=== PATIENT | female | born 1990 | race Caucasian/White ===

== ENCOUNTER 2021-03-21 20:30 | Emergency (ER) | payer BC ==
[~2021-03-21] VITALS: Ht 170.2 cm; Wt 68.2 kg
--- NOTE | 2021-03-21 20:45 | PHYS DOC ---
Past History Past Medical History: UTI General Adult EDM: Chief Complaint: FLANK PAIN HPI: HPI: ".. I ve seen a urologist and have a follow up apt.... thinks I may be having kidney stone pain... I have had UTI in past... my primary put me on bactrim... but it never works for me... I did not fill the script yet... but will if you tell me too..I came in because I am having increase pain and blood in my urine... " " I ve had kidney stone once before... " Patient is a 31 year old female who presents with above hx and complaints of flank renal colic and hematuria.. Patient has history of previous urinary tract infections. No history of STDs. Has had 4 lifetime sexual partners. No vaginal discharge. Has had 1 previous episode of renal stones in 2016. There is family history of kidney stones with grandfather. Patient denies any fever or chills. Patient denies any history of immunosuppression. Patient denies any recent travel. Patient denies any trauma. There is some question as to whether patient has been maintaining good hydration. Patient follows with urology Dr. Batista and her primary is Dr. Garnica. Patient has previous abdomen surgeries of hysterectomy. No history of coagulopathy. Review of Systems: Review of Systems: Constitutional: Denies fever or chills Eyes: Denies change in visual acuity HENT: Denies nasal congestion or sore throat Respiratory: Denies cough or shortness of breath Cardiovascular: Denies chest pain or edema GI: Complains of abdominal pain, nausea. Denies vomiting, bloody stools or diarrhea : Complains of dysuria Musculoskeletal: Denies back pain or joint pain Integument: Denies rash Neurologic: Denies headache, focal weakness or sensory changes Endocrine: Denies polyuria or polydipsia Lymphatic: Denies swollen glands Psychiatric: Denies depression or anxiety Family History: Family History: Grandfather history of kidney stones Current Medications: Current Meds: See nursing for home meds Allergies: Allergies: No known drug allergies Physical Exam: PE: Constitutional: In acute distress, non-toxic appearance. [] HENT: Normocephalic, atraumatic, bilateral external ears normal, oropharynx moist, no oral exudates, nose normal. [] Eyes: PERRLA, EOMI, conjunctiva normal, no discharge. [] Neck: Normal range of motion, no tenderness, supple, no stridor. [] Cardiovascular:Heart rate regular rhythm, no murmur [] Lungs & Thorax: Bilateral breath sounds equal apex with scattered wheezes on auscultation [] Abdomen: Bowel sounds decreased, soft, mild lower abdomen tenderness, no masses, no pulsatile masses. Bilateral flank pain on percussion. Old surgery scars. Skin: Warm, dry, no erythema, no rash. [] Back: No tenderness, no CVA tenderness. [] Extremities: No tenderness, no cyanosis, no clubbing, ROM intact, no edema. No psoas sign. No cording. Neurologic: Alert and oriented X 3, normal motor function, normal sensory function, no focal deficits noted. [] Psychologic: Affect anxious, judgement normal, mood normal. [] EKG: EKG: [] Radiology/Procedures: Radiology/Procedures: [[address] [address] IMAGING REPORT Signed PATIENT: BOBBY SEO JACCOUNT: [id number] : 1990 LOCATION: ER AGE: 31 SEX: F EXAM STATUS: REG ER ORD. PHYSICIAN: OVIDIO WHYTE MD REASON: PAIN PROCEDURE: CT ABDOMEN PELVIS WO CONTRAST Exam: CT of abdomen and pelvis without contrast INDICATION: Pain TECHNIQUE: Sequential axial images through the abdomen and pelvis obtained without IV contrast. Sagittal and coronal reformatted images were reconstructed from the axial data and reviewed. Exposure: One or more of the following in the visualized dose reduction techniques were utilized for this examination: 1. Automated exposure control 2. Adjustment of the MA and/or KV according to patient size 3. Use of iterative of reconstructive technique Comparisons: None FINDINGS: Heart size is normal. No pericardial effusion. Visualized lung bases are clear. No pleural effusion. Evaluation of solid organs is limited secondary to noncontrast technique. Liver, spleen, pancreas, gallbladder and adrenals are unremarkable. No perinephric inflammation or hydronephrosis. Cystic lesion at the upper pole of the right kidney with layering hyperdense debris. No renal or ureteral calculi are identified. Bladder is partially distended with diffuse wall thickening. Mild perivesicular fat stranding is also noted. Uterus is absent. No abnormal adnexal mass. Large and small bowel are unremarkable. Appendix is normal. No free intra- abdominal air or fluid. No obstruction. Abdominal aorta has a normal course and caliber. No enlarged intra-abdominal lymph nodes are identified. 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 No suspicious osseous lesions or acute fractures. IMPRESSION: Diffuse perivesicular fat stranding. Correlate with urinalysis for cystitis. Electronically signed by: Jeremy Gross MD (03/21/2021 10:03 PM) [facility] DICTATED AND SIGNED BY: JEREMY GROSS MD DATE: 03/21/212157 CC: OVIDIO WHYTE MD; MANUELITO GARNICA ~[facility]0 0 ][place] [address] IMAGING REPORT Signed PATIENT: BOBBY SEO JACCOUNT: [id number] : 1990 LOCATION: ER AGE: 31 SEX: F EXAM STATUS: REG ER ORD. PHYSICIAN: OVIDIO WHYTE MD REASON: ABDOMEN PAIN PROCEDURE: ACUTE ABDOMEN SERIES Exam: Acute abdominal series INDICATION: Abdominal pain TECHNIQUE: Frontal view of the chest with upright and supine views of the ab domen Comparisons: CT same day FINDINGS: The cardiomediastinal silhouette and pulmonary vessels are within normal limits. The lung and pleural spaces are clear. Air and stool are noted throughout the colon to level the rectum in a nonobstructive bowel gas pattern. No suspicious masses or calcifications. Visualized osseous structures are unremarkable. IMPRESSION: 1. No acute cardiopulmonary process. 2. Nonobstructive bowel gas pattern. Electronically signed by: Jeremy Gross MD (03/21/2021 10:09 PM) [facility] DICTATED AND SIGNED BY: JEREMY GROSS MD DATE: 03/21/212206 CC: OVIDIO WHYTE MD; MANUELITO GARNICA ~[facility]0 0 Heart Score: C/O Chest Pain: N/A Risk Factors: Risk Factors: DM, Current or recent (<one month) smoker, HTN, HLP, family history of CAD, obesity. Risk Scores: Score 0 - 3: 2.5% MACE over next 6 weeks - Discharge Home Score 4 - 6: 20.3% MACE over next 6 weeks - Admit for Clinical Observation Score 7 - 10: 72.7% MACE over next 6 weeks - Early Invasive Strategies Course & Med Decision Making: Course & Med Decision Making Pertinent Labs and Imaging studies reviewed. (See chart for details) Patient given 1 g of Rocephin IM. Patient also given 1 dose of Levaquin 500 mg. Will be discharged on Cipro 500 mg twice a day. Patient push fluids. Patient push vitamin C drinks. Patient follow-up cultures. Patient return if any concerns. Patient keep follow-up with her primary care. Patient keep follow-up with her urologist Dr. Batista. Patient return if any concerns. Impression: 1. Abdomen pain 2. Perivescular stranding-pyelonephritis 3. Urinary tract infection 4. Mild leukocytosis 11.4 5. More than 40 white cells and 40 RBCs in urine sample 6. Drug screen positive for marijuana [] Dragon Disclaimer: Dragon Disclaimer: This electronic medical record was generated, in whole or in part, using a voice recognition dictation system. Departure Departure: Referrals: MANUELITO GARNICA (PCP) Scripts Ciprofloxacin (CIPRO) 500 Mg/5 Ml [facility]..rec 500 MG PO BID for uti for 10 Days, [facility] Prov: OVIDIO WHYTE MD 03/21/21 Marry Disclaimer This chart was dictated in whole or in part using Voice Recognition software in a busy, high-work load, and often noisy Emergency Department environment. It may contain unintended and wholly unrecognized errors or omissions. OVIDIO WHYTE MD March 21, 2021 20:45
[2021-03-21] MEDS ORDERED: KETOROLAC 30 MG/ML VIAL. IVP ONE (21:15)
[2021-03-21] MEDS ORDERED: ONDANSETRON PF 4 MG/2 ML VIAL. IVP ONE (21:15)
[2021-03-21] MEDS ORDERED: cefTRIAXone IM 1 GM VIAL IM ONE (21:15)
[2021-03-21] MEDS ORDERED: FAMOTIDINE 20 MG/2 ML VIAL IVP ONE (21:15)
[2021-03-21] MEDS ORDERED: IV RINGERS SOLUTION,LACTATED 1,000 ML IV SCH (21:15)
[2021-03-21 21:18] VITALS: BP 130/71
[2021-03-21 21:27] LABS: BARBITURATES NEG (NEG); BENZODIAZEPINES NEG (NEG); CANNABINOIDS POS (NEG); COCAINE NEG (NEG); METHADONE NEG (NEG); OPIATES NEG (NEG); PHENCYCLIDINE NEG (NEG)
[2021-03-21 21:33] LABS: AMPHETAMINE/METHAMPHETAMINE NEG (NEG)
[2021-03-21 21:39] LABS: BASO # 0.1 x10^3/uL (0.0-0.2); BASO % 1 % (0-3); EOS # 0.2 x10^3/uL (0.0-0.7); EOS % 2 % (0-3); HEMOGLOBIN 13.6 g/dL (12.0-15.5); LYMPH # 4.1 x10^3/uL (1.0-4.8); LYMPH % 36 % (24-48); MEAN CORPUSCULAR HEMOGLOBIN 32 pg (25-35); MEAN CORPUSCULAR HGB CONC 33 g/dL (31-37); MEAN CORPUSCULAR VOLUME 97 fL (79-100); MONO # 0.9 x10^3/uL (0.0-1.1); MONO % 8 % (0-9); NEUT # 6.1 x10^3uL (1.8-7.7); NEUT % 53 % (31-73); PLATELET COUNT 183 x10^3/uL (140-400); RED BLOOD COUNT 4.21 x10^6/uL (3.50-5.40); WHITE BLOOD COUNT 11.4 x10^3/uL (4.0-11.0)
[2021-03-21 21:47] LABS: ANION GAP 6 (6-14); BLOOD UREA NITROGEN 13 mg/dL (7-20); CALCIUM 8.7 mg/dL (8.5-10.1); CARBON DIOXIDE 29 mmol/L (21-32); CHLORIDE 107 mmol/L (98-107); CREATININE 0.8 mg/dL (0.6-1.0); GFR 83.7; GLUCOSE 114 mg/dL (70-99); POTASSIUM 3.7 mmol/L (3.5-5.1); SODIUM 142 mmol/L (136-145)
[2021-03-21 21:50] LABS: BILIRUBIN,URINE NEG (NEG); CLARITY,URINE CLOUDY; COLOR,URINE YELLOW; GLUCOSE,URINE NEG (NEG); NITRITE,URINE NEG (NEG); UROBILINOGEN,URINE 0.2 mg/dL (0.2 mg/dL)
[2021-03-21 21:51] LABS: BACTERIA,URINE MOD /HPF (0-FEW); RBC,URINE >40 /HPF (0-2); SQUAMOUS EPITHELIAL CELL,UR MOD /LPF; WBC,URINE >40 /HPF (0-4)
[2021-03-21 21:53] LABS: ALBUMIN 3.7 g/dL (3.4-5.0); ALK PHOS 56 U/L (46-116); ALT (SGPT) 13 U/L (14-59); AMYLASE 31 U/L (25-115); AST (SGOT) 13 U/L (15-37); LIPASE 66 U/L (73-393); TOTAL BILIRUBIN 0.3 mg/dL (0.2-1.0); TOTAL PROTEIN 6.9 g/dL (6.4-8.2)
[2021-03-21 21:54] LABS: DIRECT BILIRUBIN < 0.1 mg/dL (0.0-0.2)
--- NOTE | 2021-03-21 22:06 | RAD ---
Exam: CT of abdomen and pelvis without contrast INDICATION: Pain TECHNIQUE: Sequential axial images through the abdomen and pelvis obtained without IV contrast. Sagit jossue and coronal reformatted images were reconstructed from the axial data and reviewed. Exposure: One or more of the following in the visualized dose reduction techniques were utilized for this examination: 1. Automated exposure control 2. Adjustment of the MA and/or KV according to patient size 3. Use of iterative of reconstructive technique Comparisons: None FINDINGS: Heart size is normal. No pericardial effusion. Visualized lung bases are clear. No pleural effusion. Evaluation of solid organs is limited secondary to noncontrast technique. Liver, spleen, pancreas, gallbladder and adrenals are unremarkable. No perinephric inflammation or hydronephrosis. Cystic lesion at the upper pole of the right kidney wi th layering hyperdense debris. No renal or ureteral calculi are identified. Bladder is partially distended with diffuse wall thickening. Mild perivesicular fat stranding is also noted. Uterus is absent. No abnormal adnexal mass. Large and small bowel are unremarkable. Appendix is normal. No free intra-abdominal air or fluid. No obstruction. Abdominal aorta has a normal course and caliber. No enlarged intra-abdominal lymph nodes are identified. 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 No suspicious osseous lesions or acute fractures. IMPRESSION: Diffuse perivesicular fat stranding. Correlate with urinalysis for cystitis. Electronically signed by: Jeremy Tijerina MD (03/21/2021 10:03 PM) [facility]
--- NOTE | 2021-03-21 22:12 | RAD ---
Exam: Acute abdominal series INDICATION: Abdominal pain TECHNIQUE: Frontal view of the chest with upright and supine views of the abdomen Comparisons: CT same day FINDINGS: The cardiomediastinal silhouette and pulmonary vessels are within normal limits. The lung and pleural spaces are clear. Air and stool are noted throughout the colon to level the rectum in a nonobstructive bowel gas patter n. No suspicious masses or calcifications. Visualized osseous structures are unremarkable. IMPRESSION: 1. No acute cardiopulmonary process. 2. Nonobstructive bowel gas pattern. Electronically signed by: Jeremy Tijerina MD (03/21/2021 10:09 PM) [facility]
[2021-03-21] MEDS ORDERED: CIPR500S2 PO (22:24)
[2021-03-21] MEDS ORDERED: levoFLOXacin 500 MG TABLET PO ONE (22:30)
[2021-03-21] MEDS ORDERED: levoFLOXacin 500 MG TABLET ONE (22:30)
== END 2021-03-21 22:38 | disposition home or self-care (01) ==
LOC: ER 20:30
DX: N12 Tubulo-interstitial nephritis, not specified as acute or chronic (principal); N39.0 Urinary tract infection, site not specified; D72.829 Elevated white blood cell count, unspecified; F12.90 Cannabis use, unspecified, uncomplicated; Z87.440 Personal history of urinary (tract) infections
CPT/HCPCS: 36415; 74022; 74176; 80048; 80076; 80307; 81001; 81025; 82150; 82550; 83690; 85025; 85610; 85730; 87086; 96361; 96372; 96374; 96375; 99285; J0696; J1885; J2405; J3490; J7120